=== PATIENT | female | born 1995 | race Caucasian/White ===

== ENCOUNTER 2016-07-17 10:25 | Emergency (ER) | payer SELFPAY ==
[2016-07-17 11:08] VITALS: BP 126/82
--- NOTE | 2016-07-18 12:22 | ED Elopement Review ---
ED Pt Elopement review - Call Back decision Pt Call Back Decision: No action required
== END 2016-07-17 11:35 | disposition left against medical advice (07) ==
LOC: ED 10:25
DX: O26.892 Other specified pregnancy related conditions, second trimester (principal); R10.30 Lower abdominal pain, unspecified; R07.81 Pleurodynia; R05 Cough; Z3A.15 15 weeks gestation of pregnancy; Z53.21 Procedure and treatment not carried out due to patient leaving prior to being seen by health care provider

== ENCOUNTER 2018-04-23 17:03 | Emergency (ER) | payer MEDICAID, OTHER ==
--- NOTE | 2018-04-23 18:04 | Emergency Department Report ---
ED Female HPI - General Chief complaint: Urogenital-Female Stated complaint: LT OVARY PAIN/BLEEDING Time Seen by Provider: 04/23/18 17:37 Source: patient Mode of arrival: Ambulatory Limitations: No Limitations - History of Present Illness Initial comments: This is a 22-year-old female who presents with lower abdominal pain and vaginal bleeding for 3 days. Patient reports last menstrual period was 04/2018. States she has IUD and does not believe she is . She is 5 feet 283. Patient states her periods stopped and restarted 3 days ago. She is passed and heavy blood clots with heavy bleeding. Patient states she have to change erica pads every 2 hours. She is wearing a super tampon. She is currently taken ibuprofen for pain with no improvement of symptoms. Patient reports pain is primarily left lower quadrant radiating to left flank. Pain is 8 out of 10 on pain scale and lasts for several hours. She denies frequency, urgency dysuria, vaginal discharge, numbness or tingling, swelling, erythema, dizziness, chest pain, or shortness of breath. MD Complaint: vaginal bleeding Onset/Timin -: days(s) Location: LLQ, RLQ Radiation: other (right lower extremity) Severity: moderate Severity scale (0 -10): 8 Quality: sharp Consistency: intermittent Improves with: none Worsens with: none Are you Now?: No Last Menstrual Period: 04/15/18 EDC: 01/20/19 Associated Symptoms: vaginal bleeding, abdominal pain. denies: vaginal discharge, nausea/vomiting, fever/chills, headaches, loss of appetite, dysuria, hematuria, rash, seizure, shortness of breath, syncope, weakness - Related Data Sexually active: Yes : 5 Para: 2 A: 3 Previous Rx's Medication Instructions Recorded Last Taken Type Ibuprofen [Motrin 800 MG tab] 800 mg PO Q8HR PRN #12 tablet 04/23/18 Unknown Rx traMADol [Ultram 50 MG tab] 50 mg PO Q6HR PRN #8 tablet 04/23/18 Unknown Rx Allergies Allergy/AdvReac Type Severity Reaction Status Date / Time No Known Allergies Allergy Unverified 07/17/16 11:03 ED Review of Systems ROS: Stated complaint: LT OVARY PAIN/BLEEDING Other details as noted in HPI Constitutional: denies: chills, fever Respiratory: denies: cough, shortness of breath, wheezing Cardiovascular: denies: chest pain, palpitations Gastrointestinal: abdominal pain (LLQ radiating to LLE). denies: nausea, diarrhea Genitourinary: abnormal menses. denies: urgency, dysuria, discharge Musculoskeletal: back pain (left flank pain). denies: joint swelling, arthralgia Skin: denies: rash, lesions Neurological: denies: headache, weakness, paresthesias Psychiatric: denies: anxiety, depression ED Past Medical Hx - Past Medical History Previous Medical History?: Yes Additional medical history: Ovarian cysts - Surgical History Past Surgical History?: No - Social History Smoking Status: Never Smoker Substance Use Type: None - Medications Home Medications: Home Medications Medication Instructions Recorded Confirmed Last Taken Type Ibuprofen [Motrin 800 MG tab] 800 mg PO Q8HR PRN #12 tablet 04/23/18 Unknown Rx traMADol [Ultram 50 MG tab] 50 mg PO Q6HR PRN #8 tablet 04/23/18 Unknown Rx ED Physical Exam - General Limitations: No Limitations General appearance: alert, in no apparent distress - Respiratory Respiratory exam: Present: normal lung sounds bilaterally. Absent: respiratory distress - Cardiovascular Cardiovascular Exam: Present: regular rate, normal rhythm. Absent: systolic murmur, diastolic murmur, rubs, gallop - GI/Abdominal GI/Abdominal exam: Present: soft, tenderness (left lower quadrant tenderness), normal bowel sounds. Absent: distended, guarding, rebound, rigid, organomegaly , mass - Back Exam Back exam: Present: normal inspection. Absent: CVA tenderness (R) - Neurological Exam Neurological exam: Present: alert, oriented X3 - Psychiatric Psychiatric exam: Present: normal affect, normal mood - Skin Skin exam: Present: warm, dry, intact, normal color. Absent: rash ED Course Vital Signs 04/23/18 17:20 Temperature 98.5 F Pulse Rate 93 H Respiratory 18 Rate Blood Pressure 103/73 O2 Sat by Pulse 97 Oximetry ED Medical Decision Making - Lab Data Result diagrams: 04/23/18 18:03 Lab Results 04/23/18 04/23/18 Range/Units 18:03 19:09 WBC 8.4 (4.5-11.0) K/mm3 RBC 4.30 (3.65-5.03) M/mm3 Hgb 13.1 (10.1-14.3) gm/dl Hct 38.7 (30.3-42.9) % MCV 90 (79-97) fl MCH 30 (28-32) pg MCHC 34 (30-34) % RDW 13.5 (13.2-15.2) % Plt Count 275 (140-440) K/mm3 Urine Color Yellow (Yellow) Urine Turbidity Clear (Clear) Urine pH 6.0 (5.0-7.0) Ur Specific [place] 1.024 (1.003-1.030) Urine Protein <15 mg/dl (Negative) mg/dL Urine Glucose (UA) Neg (Negative) mg/dL Urine Ketones Neg (Negative) mg/dL Urine Blood Neg (Negative) Urine Nitrite Neg (Negative) Ur Reducing Substances Not Reportable Urine Bilirubin Neg (Negative) Urine Ictotest Not Reportable Urine Urobilinogen 2.0 (<2.0) mg/dL Ur Leukocyte Esterase Tr (Negative) Urine WBC (Auto) 7.0 H (0.0-6.0) /HPF Urine RBC (Auto) 15.0 (0.0-6.0) /HPF U Epithel Cells (Auto) 2.0 (0-13.0) /HPF Urine HCG, Qual Negative (Negative) - Radiology Data Radiology results: report reviewed, image reviewed EXAM: US TRANSVAGINAL HISTORY: left lower quadrant pain radiating to left flank TECHNIQUE: Ultrasound pelvis transvaginal PRIORS: None. FINDINGS: Uterus is 8.5 x 3.2 x 5.2 centimeters No myometrial abnormality is identified There is an echogenic structure consistent with an IUD seen the fundus of the uterus. Endometrial thickness 0.53 centimeters Right ovary 2.8 x 1.6 x 2.1 centimeters Left ovary is 4.3 x 1.7 x 3.3 centimeters. Cystic structure with some and internal echoes 2.7 x 1.1 x 1.3 centimeters as well as 1.0 centimeters cyst within the left ovary likely follicular. No free fluid seen within the cul-de-sac IMPRESSION: 2.7 centimeter somewhat complex cyst within the left adnexa could be hemorrhagic or involuting cyst. IUD within the uterus Otherwise negative study - Medical Decision Making Patient was examined by me. Vitals are normal and patient is in no acute distress. Obtained labs and ultrasound of pelvis. Ultrasound dictated by radiologist and report reviewed by myself. US: 2.7 centimeter somewhat complex cyst within the left adnexa could be hemorrhagic or involuting cyst. IUD within the uterus. Otherwise negative study Patient informed of results. Start ibuprofen for pain related to left ovarian cyst. Referral to [facility] for continued care. Patient discharged home in stable condition. Follow up with PCP in 2-3 days. Critical care attestation.: If time is entered above; I have spent that time in minutes in the direct care of this critically ill patient, excluding procedure time. ED Disposition Clinical Impression: Abdominal pain, acute, left lower quadrant, Hemorrhagic cyst of left ovary Ovarian cyst Qualifiers: Laterality: left Qualified Code(s): N83.202 - Unspecified ovarian cyst, left side Disposition: TO HOME OR SELFCARE Is pt being admited?: No Does the pt Need Aspirin: No Condition: Stable Instructions: Ovarian Cyst (ED) Additional Instructions: Follow-up with, web production manager for further evaluation. Return to emergency room if pain is uncontrolled, lesion increase, chest pain, shortness of breath. Prescriptions: Ibuprofen [Motrin 800 MG tab] 800 mg PO Q8HR PRN #12 tablet PRN Reason: Pain , Severe (7-10) traMADol [Ultram 50 MG tab] 50 mg PO Q6HR PRN #8 tablet PRN Reason: Pain Referrals: [facility] [Provider Group] - 3-5 Days [facility] [Provider Group] - 3-5 Days Forms: Work/School Release Form(ED) Time of Disposition: 22:05
[2018-04-23 18:16] LABS: Hematocrit 38.7 % (30.3-42.9); Hemoglobin 13.1 gm/dl (10.1-14.3); Mean Corpuscular HGB Conc 34 % (30-34); Mean Corpuscular Hemoglobin 30 pg (28-32); Mean Corpuscular Volume 90 fl (79-97); Platelet Count 275 K/mm3 (140-440); Red Cell Distribution Width 13.5 % (13.2-15.2)
[2018-04-23 19:28] LABS: Bilirubin,Urine NEG (Negative); Blood,Urine NEG (Negative); Color,Urine Yellow (Yellow); HCG Qualitative,Urine Negative (Negative); Protein,Urine <15 mg/dL mg/dL (Negative)
--- NOTE | 2018-04-23 21:06 | Ultrasound Report ---
FINAL REPORT EXAM: US PELVIC COMPLETE HISTORY: left lower quadrant pain radiating to left flank TECHNIQUE: Ultrasound pelvis transabdominal PRIORS: None. FINDINGS: Uterus is 8.5 x 3.2 x 5.2 centimeters No myometrial abnormality is identified There is an echogenic structure consistent with an IUD seen the fundus of the uterus. Endometrial thickness 0.53 centimeters Right ovary 2.8 x 1.6 x 2.1 centimeters Left ovary is 4.3 x 1.7 x 3.3 centimeters. Cystic structure with some and internal echoes 2.7 x 1.1 x 1.3 centimeters as well as 1.0 centimeters cyst within the left ovary likely follicular. No free fluid seen within the cul-de-sac IMPRESSION: 2.7 centimeter somewhat complex cyst within the left adnexa could be hemorrhagic or involuting cyst. IUD within the uterus Otherwise negative study
--- NOTE | 2018-04-23 21:10 | Ultrasound Report ---
FINAL REPORT EXAM: US TRANSVAGINAL HISTORY: left lower quadrant pain radiating to left flank TECHNIQUE: Ultrasound pelvis transvaginal PRIORS: None. FINDINGS: Uterus is 8.5 x 3.2 x 5.2 centimeters No myometrial abnormality is identified There is an echogenic structure consistent with an IUD seen the fundus of the uterus. Endometrial thickness 0.53 centimeters Right ovary 2.8 x 1.6 x 2.1 centimeters Left ovary is 4.3 x 1.7 x 3.3 centimeters. Cystic structure with some and internal echoes 2.7 x 1.1 x 1.3 centimeters as well as 1.0 centimeters cyst within the left ovary likely follicular. No free fluid seen within the cul-de-sac IMPRESSION: 2.7 centimeter somewhat complex cyst within the left adnexa could be hemorrhagic or involuting cyst. IUD within the uterus Otherwise negative study
[2018-04-23] MEDS ORDERED: TORADOL IM ONE (21:43)
[2018-04-23 22:49] VITALS: BP 108/70
== END 2018-04-23 22:49 | disposition home or self-care (01) ==
LOC: ED 17:03
DX: N83.291 Other ovarian cyst, right side (principal)
CPT/HCPCS: 36415; 76830; 76856; 81001; 81025; 85027; 96372; 99284; J1885